=== PATIENT | female | born 1960 | race Caucasian/White ===

== ENCOUNTER 2018-09-11 07:15 | Emergency (ER) | payer OTHER ==
[~2018-09-11] VITALS: Ht 160 cm; Wt 89.8 kg
[2018-09-11] MEDS ORDERED: INTESTINEX680 M1 (07:29)
[2018-09-11] MEDS ORDERED: METFORMIN HCL500 MG (07:30)
[2018-09-11] MEDS ORDERED: FLAGYL500MG (07:30)
[2018-09-11] MEDS ORDERED: SYNTHROID125 MCG (07:30)
== END 2018-09-11 09:36 | disposition home or self-care (01) ==
LOC: ER 07:15
DX: K52.89 Other specified noninfective gastroenteritis and colitis (principal)

== ENCOUNTER 2018-09-28 17:16 | Emergency (ER) | payer OTHER ==
[~2018-09-28] VITALS: Ht 160 cm; Wt 89.8 kg
[~2018-09-28 17:16] MED LIST: FLAGYL500MG; INTESTINEX680 M1; METFORMIN HCL500 MG; SYNTHROID125 MCG
== END 2018-09-28 19:09 | disposition home or self-care (01) ==
LOC: ER 17:16
DX: B34.9 Viral infection, unspecified (principal); J06.9 Acute upper respiratory infection, unspecified

== ENCOUNTER 2021-05-26 12:00 | Inpatient (IN) | payer OTHER ==
[~2021-05-26] VITALS: Ht 160 cm; Wt 88.9 kg
[2021-05-30] MEDS ORDERED: SEGLUROMET 2.51 EAC1 (16:29)
[2021-05-30] MEDS ORDERED: INTESTINEX680 M1 (16:29)
== END 2021-06-02 18:03 | disposition home or self-care (01) | DRG 330 ==
LOC: SURH 05-30 07:41 → O/R 05-30 07:41 → SURH 05-30 12:00
PROVIDERS: ADMIT Colon & Rectal Surgery; ATTEND Colon & Rectal Surgery
PROC: 0DTN0ZZ Resection of Sigmoid Colon, Open Approach (ICD-10-PCS; 2021-05-30)
PROC: 0DJD8ZZ Inspection of Lower Intestinal Tract, Via Natural or Artificial Opening Endoscopic (ICD-10-PCS; 2021-05-30)
PROC: 0DTP0ZZ Resection of Rectum, Open Approach (ICD-10-PCS; principal; 2021-05-30 13:45)
DX: K57.32 Diverticulitis of large intestine without perforation or abscess without bleeding (principal); K55.1 Chronic vascular disorders of intestine; Z20.822 Contact with and (suspected) exposure to COVID-19; G47.39 Other sleep apnea; E83.39 Other disorders of phosphorus metabolism